=== PATIENT | male | born 1955 ===

== ENCOUNTER → 2023-11-27 15:08 | Outpatient (REF) | payer MEDICARE, OTHER, SELFPAY | LOC: HWRAD 15:08 | PROVIDERS: ATTENDING PHYSICIAN Internal Medicine Geriatric Medicine | DX: Z00.00 Encounter for general adult medical examination without abnormal findings (principal); E78.2 Mixed hyperlipidemia; N52.9 Male erectile dysfunction, unspecified; E55.9 Vitamin D deficiency, unspecified; R59.0 Localized enlarged lymph nodes; E03.9 Hypothyroidism, unspecified; Z13.31 Encounter for screening for depression; R05.3 Chronic cough; R91.8 Other nonspecific abnormal finding of lung field; Z12.5 Encounter for screening for malignant neoplasm of prostate | CPT/HCPCS: 71260; Q9967 ==

== ENCOUNTER → 2025-01-03 07:02 | Outpatient (REF) | payer MEDICARE, OTHER, SELFPAY ==
[2025-01-03 09:00] LABS: Hematocrit 43.9 % (39.0-52.0); Hemoglobin 14.3 g/dL (13.0-18.0); Mean Corp Hgb Conc. 32.6 g/dL (33.0-37.0); Mean Corpuscular Volume 91.5 fL (80.0-94.0); Platelet Count 220 10^3/uL (130-400); Red Cell Dist. Width 12.2 % (11.5-14.5)
[2025-01-03 09:32] LABS: Blood Urea Nitrogen 18 mg/dl (9-20); Calcium 9.3 mg/dl (8.4-10.2); Carbon Dioxide 27 mmol/L (22-30); Chloride 106 mmol/L (98-107); Glucose 93 mg/dl (70-99); Potassium 4.9 mmol/L (3.5-5.1); Sodium 139 mmol/L (135-145); eGFR > 60.00
== END ==
LOC: SDSPAT 07:02
PROVIDERS: ATTENDING PHYSICIAN Surgery; FAMILY PHYSICIAN Internal Medicine Geriatric Medicine
DX: Z01.818 Encounter for other preprocedural examination (principal)
CPT/HCPCS: 36415; 80048; 85027; 93005

== ENCOUNTER 2025-01-10 06:03 | Day surgery (SDC) | payer MEDICARE, OTHER, SELFPAY ==
[2025-01-03 14:01] VITALS: BMI 29.5
[2025-01-10] VITALS (7 sets, daily range): BP systolic 108–183; BP diastolic 67–77; BMI 29.5
--- NOTE | 2025-01-10 06:42 | HP.FOC2 ---
Focused History & Physical
Chief Complaint
HPI:
Chief Complaint: Right inguinal hernia
HPI / Indication for Planned Procedure: Patient is a 69-year-old male who was previously undergone a laparoscopic left inguinal herniorrhaphy with mesh in 2016. He has subsequently taken note of swelling in the right inguinal region. It has slowly
increased in size over the years with an awareness of the hernia being present on a daily basis. Occasional discomfort and at times the hernia is painful depending on his degree of physical activity and exertion. The hernia remains readily
reducible. Outpatient surgical evaluation confirmed the presence of a reducible right inguinal hernia. He presents today for scheduled operative correction.
Relevant Past Medical History: Other (Hypothyroidism)
Relevant Social History: Negative
Relevant Family History: Negative
Relevant Past Surgical History: Positive for (Lap TEP repair left inguinal hernia with mesh; left knee ACL repair, tonsillectomy)
Review of Systems
Review of Pertinent Systems: All Systems Negative
Medication
See Medication form for detailed medications: Yes
Medication List (including Herbals & OTC):
Vitamin C 1 dose PO DAILY 01/01/25
levothyroxine 88 mcg tablet (Synthroid) 88 mcg PO DAILY 01/01/25
Medications Reviewed: Yes
Allergies and Reactions
Patient has Allergies: No
Noted Allergies and Reactions:
Allergy/AdvReac Type Severity Reaction Status Date / Time
No Known Allergies Allergy Unverified 01/01/25 14:15
Pertinent Physical Exam
All Other Systems: Negative
Head/Neck: Normal
Lungs: Normal
Heart: Normal
Abdomen: Other (Reducible right inguinal hernia)
Extremities: Normal
Neurological: Normal
Diagnosis / Assessment
69-year-old male presenting for scheduled operative correction symptomatic right inguinal hernia
Plan / Procedure
Robotic assisted laparoscopic repair of right inguinal hernia with mesh
Anesthesia/Sedation to be done by Anesthesia Provider: Yes
--- NOTE | 2025-01-10 06:45 | W.SUR.PREOP ---
Pre-Operative Surgical Note
-
I have examined this patient prior to the performance of the scheduled procedure.
The patient's condition is unchanged from the time of the current History and
Physical and the patient is able to undergo the scheduled procedure.
[2025-01-10] MEDS: TYLENOL 1000 MG PO (07:15)
[2025-01-10] MEDS: NORMOSOL-R/PLASMALYTE-A 1000 IV (07:16)
--- NOTE | 2025-01-10 09:09 | W.IMMPOSTOP ---
Addendum entered and electronically signed by Jr Machado MD 01/10/25 09:19:
[id number]
Original Note:
Surgical Immed Post Op Note
-
Primary Surgeon: rJ Machado MD
Assisting Surgeon: Marlene Stubbs
Pre-op Diagnosis: Right inguinal hernia
Post-op Diagnosis: Right inguinal hernia, direct
Procedure Performed: Robotic assisted laparoscopic JEAN repair right inguinal hernia with mesh; 3D max large mid weight
Anesthesia Type: GETA +0.25% Marcaine
Specimen / Cultures: None
Estimated Blood Loss: 6 mL
Complications: None immediate
Operative Findings: Previous left inguinal herniorrhaphy intact and well-healed without adhesions. Right inguinal region with direct inguinal hernia. Indirect space normal. No lipoma of spermatic cord. 3D max large mid weight mesh repair secured
to Robinson's ligament with 2-0 Vicryl stitch x 2. Reduction of pseudosac secured to Robinson's ligament with 2-0 Vicryl stitch. Peritoneal flap closed with 2-0 Monocryl STRATAFIX spiral
Patient's updated postoperatively via phone call
== END 2025-01-10 10:25 | disposition home or self-care (01) ==
LOC: SDS 06:03
PROVIDERS: ATTENDING PHYSICIAN Surgery
DX: K40.90 Unilateral inguinal hernia, without obstruction or gangrene, not specified as recurrent (principal)
CPT/HCPCS: 49650; C1781